=== PATIENT | female | born 1955 | race Caucasian/White ===

== ENCOUNTER 2017-07-01 10:55 | Day surgery (SDC) | payer BC ==
[~2017-07-01 10:55] MED LIST: Lactated Ringers 1,000 ML IV SCH; Sodium Chloride 0.9% 5 ML Syringe FLUSH PRN
[2017-07-01] MEDS ORDERED: Propofol 200 MG/20 ML SDV ONE ×2 (11:43→12:32)
[2017-07-01] MEDS ORDERED: Midazolam 1 MG/ML 2 ML SDV ONE (11:43)
[2017-07-01] MEDS ORDERED: Propofol 200 MG/20 ML SDV IV ONE (12:13)
[2017-07-01] MEDS ORDERED: Midazolam 1 MG/ML 2 ML SDV IV ONE (12:13)
--- NOTE | 2017-07-01 12:17 | PCM.PN ---
- General Info Date of Service: 07/01/17 - Review of Systems Systems Review Comment:: 61-year-old female here for colonoscopy. She has had 2 previous colonoscopies and she states that she has had colon polyps in the past. She is medically stable to proceed today with no recent significant change in her health status. I have discussed the proposed colonoscopy with the patient. Risks such as but not limited to bleeding and GI injury reviewed. She appears to understand and agrees to proceed. - Patient Data Vitals - Most Recent: Last Vital Signs Temp 98.5 F 07/01/17 11:17 Pulse 52 L 07/01/17 11:17 Resp 18 07/01/17 11:17 BP 121/67 07/01/17 11:17 Pulse Ox 99 07/01/17 11:17 Weight - Most Recent: 89.811 kg Med Orders - Current: Current Medications Lactated Ringer's (Ringers, Lactated) 1,000 mls @ 50 mls/hr IV ASDIRECTED DARLYN Last Admin: 07/01/17 11:25 Dose: 50 mls/hr Sodium Chloride (Syrex Flush) 5 ml FLUSH Q8HR PRN PRN Reason: Keep Vein Open Discontinued Medications Midazolam HCl (Versed 1 Mg/Ml) Confirm Administered Dose 4 mg .ROUTE .STK-MED ONE Stop: 07/01/17 11:44 Propofol (Diprivan 20 Ml) Confirm Administered Dose 200 mg .ROUTE .STK-MED ONE Stop: 07/01/17 11:44 - Problem List Review Problem List Initiated/Reviewed/Updated: Yes - My Orders Last 24 Hours: My Active Orders 06/30/17 14:18 Resuscitation Status Routine 07/01/17 10:30 Patient to Empty Bladder [RC] ASDIRECTED Peripheral IV Care [RC] . DIRECTED Verify Patient Consent Obtain [RC] ASDIRECTED Lactated Ringers [Ringers, Lactated] 1,000 ml IV ASDIRECTED Sodium Chloride 0.9% [Syrex Flush] 5 ml FLUSH Q8HR PRN Peripheral IV Insertion Adult [OM.PC] Routine 07/01/17 Breakfast Nothing Per Oral Diet [DIET] - Assessment Assessment:: History of colon polyps - Plan Plan:: Colonoscopy
[2017-07-01] MEDS ORDERED: Lactated Ringers 1,000 ML ONE (12:45)
--- NOTE | 2017-07-01 12:56 | PCM.OPNOTE ---
- General Post-Op/Procedure Note Date of Surgery/Procedure: 07/01/17 Operative Procedure(s): Colonoscopy with Polypectomy Findings: Small Splenic Flexure Polyp Moderate Sigmoid Diverticulosis Moderate to Large Hemorrhoids Pre Op Diagnosis: History of Colon Polyps Post-Op Diagnosis: Colon Polyp. Diverticulosis. Hemorrhoids Anesthesia Technique: MAC Primary Surgeon: Washington Ventura Pathology: Splenic Flexure Polyp Output, Urine Amount: 0 EBL in mLs: 0 Complications: None Condition: Good
[2017-07-01 14:22] VITALS: BP 118/82
--- NOTE | 2017-07-01 22:03 | OR ---
DATE OF SURGERY: 07/01/2017 SURGEON: Washington Ventura MD REFERRING PHYSICIAN: Sofía Hooper MD PREOPERATIVE DIAGNOSIS: History of colon polyps. POSTOPERATIVE DIAGNOSIS: Colon polyp, diverticulosis, and hemorrhoids. OPERATION PERFORMED: Colonoscopy with polypectomy. INDICATIONS FOR SURGERY: This 61-year-old female, who comes for a colonoscopy today. She does have a history of colon polyps in the past. FINDINGS: Single polyp was noted today at the splenic flexure. This was an irregularly shaped, 8 mm sessile polyp. The patient has a moderate degree of sigmoid diverticulosis which does not appear to be acutely inflamed or otherwise complicated. She also has moderate to large external hemorrhoids. PROCEDURE: The patient was taken to the operating room. She was given intravenous sedation and with her in the left lateral decubitus position, digital rectal exam was performed showing no rectal masses. The Olympus colonoscope was inserted into the rectum. Retroflexed examination of the rectal canal was performed. The scope was then carefully advanced under direct visualization throughout the entire length of the colon until cecum was reached. Cecal acquisition was confirmed by noting the normal internal cecal anatomy including the appendiceal orifice and ileocecal valve. After examining the cecum, the scope was slowly withdrawn sequentially re-examining the colonic segments. At the splenic flexure level, the above-described polyp was identified. This was removed with a cautery snare and retrieved into a polyp trap. Examination is continued and then completed. No sign of any complication was noted. After the scope was removed, the patient was taken from the operating room in satisfactory condition. ESTIMATED BLOOD LOSS: Zero. COMPLICATIONS: None. PROGNOSIS: Good. /[id number]/MODL
== END 2017-07-01 14:20 | disposition home or self-care (01) ==
LOC: KA.SDS 10:55
PROVIDERS: ATTEND Surgery
DX: Z12.11 Encounter for screening for malignant neoplasm of colon (principal); K63.5 Polyp of colon; K57.30 Diverticulosis of large intestine without perforation or abscess without bleeding; K64.4 Residual hemorrhoidal skin tags; I25.2 Old myocardial infarction; Z86.010 Personal history of colon polyps; Z91.040 Latex allergy status; Z91.018 Allergy to other foods; J30.81 Allergic rhinitis due to animal (cat) (dog) hair and dander; Z79.82 Long term (current) use of aspirin; Z79.899 Other long term (current) drug therapy; Z98.51 Tubal ligation status; Z87.891 Personal history of nicotine dependence
CPT/HCPCS: 45385; J2250; J2704; J7120

== ENCOUNTER 2020-07-05 12:33 | Emergency (ER) | payer BC ==
[2020-07-05] MEDS: Aspirin 81 MG Tab.Chew PO ONE (13:04)
[2020-07-05] MEDS: Ondansetron 4 MG/2 ML SDV IVPUSH ONE (13:04)
[2020-07-05] MEDS: Aspirin 81 MG Tab.Chew ONE (13:14)
[2020-07-05] MEDS: Sodium Chloride 0.9% 1,000 ML ONE (13:14)
[2020-07-05] MEDS: Sodium Chloride 0.9% 1,000 ML IV SCH (13:14)
--- NOTE | 2020-07-05 13:28 | EDM.PDOC ---
ED HPI GENERAL MEDICAL PROBLEM - General Stated Complaint: NAUSEA Time Seen by Provider: 07/05/20 13:01 Source of Information: Reports: Patient History Limitations: Reports: No Limitations - History of Present Illness INITIAL COMMENTS - FREE TEXT/NARRATIVE: Presents emergency room for chief complaint of severe upper middle back pain and nausea. Patient was working night shifts at [employer] and she developed upper middle back pain which was severe right between her shoulder blades. There is no radiation and she had associated symptoms of only nausea. The pain got worse when she was 10 out of 10 in which she left early from work. She sat in her vehicle hunched over on the steering well and the pain eventually subsided. She notes going to bed at 4:30 in the morning and slept until 830 this morning. She woke up and developed the same pain again. She also had this exact same pain the night before which only lasted for a brief period of time. It is not reproducible and movement does not change the pain. She notes that sharp constant throbbing pain. She took some ibuprofen which did not to help. She did call her family doctor this morning and had telemedicine visit at 11:00. She was referred to emergency room for further evaluation and management for this upper mid back pain concerning for ACS. She has history of ACS back in 2016 which had angiogram with no stent placement "due to arteries being too small where the blockage was occurred". She was placed on Plavix for a while which has been discontinued. Currently she has history of hypertension managed with Coreg, hyperlipidemia intolerant to statins therefore managed by niacin twice daily. Cigarette smoking history she is down to 2 cigarettes/day however she has history of 30-35 years half pack per day. In addition to note she has lost 40 pounds in last 6 months without really trying. She does note eating less due to working night shifts because she does not like eating where she works at. Upper Back Pain Score (Numeric/FACES): 10 - Related Data Allergies Allergy/AdvReac Type Severity Reaction Status Date / Time animal dander Allergy unknown Verified 07/01/17 11:08 kiwi Allergy Anaphylactic Verified 07/01/17 11:08 Shock Latex, Natural Rubber Allergy Hives Verified 07/01/17 11:08 Home Meds: Home Meds Calcium Carbonate/Vitamin D3 [Calcium 600 + Vit D 200] 1 tab PO BID 06/30/16 [History] Aspirin [Halfprin] 81 mg PO DAILY 06/30/17 [History] carvediloL [Coreg] 3.125 mg PO BID 06/30/17 [History] Niacin 1,000 mg PO BID 07/05/20 [History] Ondansetron [Zofran ODT] 4 mg PO Q6H PRN #10 tab.dis 07/05/20 [Rx] Past Medical History HEENT History: Reports: None Cardiovascular History: Reports: Angina Respiratory History: Reports: Bronchitis, Recurrent, Pneumonia, Recurrent Gastrointestinal History: Reports: Hemorrhoids Other Gastrointestinal History: esophageal spasm in 02/2016 Genitourinary History: Reports: None VALIDATION ANALYST History: Reports: Neurological History: Reports: None Endocrine/Metabolic History: Reports: None Dermatologic History: Reports: Other (See Below) Other Dermatologic History: Rash - Infectious Disease History Infectious Disease History: Reports: Chicken Pox, Measles, Mumps Social & Family History - Family History Family Medical History: No Pertinent Family History Cardiac: Reports: None, Other (See Below) Other Cardiac Family History: / Respiratory: Reports: None Neurological: Reports: None - Caffeine Use Caffeine Use: Reports: Tea ED ROS GENERAL - Review of Systems Review Of Systems: See Below Constitutional: Reports: No Symptoms. Denies: Fever, Weakness, Diaphoresis HEENT: Reports: No Symptoms Respiratory: Reports: No Symptoms. Denies: Shortness of Breath, Cough Cardiovascular: Reports: No Symptoms. Denies: Chest Pain, Dyspnea on Exertion, Edema, Syncope Endocrine: Reports: No Symptoms. Denies: Fatigue GI/Abdominal: Reports: Nausea. Denies: Abdominal Pain, Diarrhea, Vomiting Musculoskeletal: Reports: Back Pain. Denies: Neck Pain, Shoulder Pain Skin: Reports: No Symptoms. Denies: Rash Neurological: Reports: No Symptoms. Denies: Dizziness, Headache ED EXAM, GENERAL - Physical Exam Exam: See Below Exam Limited By: No Limitations General Appearance: Alert, WD/WN, No Apparent Distress Eye Exam: Bilateral Eye: EOMI Nose: Normal Inspection Throat/Mouth: Normal Inspection, Normal Oropharynx Head: Atraumatic, Normocephalic Neck: Normal Inspection, Supple, Non-Tender, Full Range of Motion Respiratory/Chest: No Respiratory Distress, Lungs Clear, Normal Breath Sounds, No Accessory Muscle Use, Chest Non-Tender Cardiovascular: Normal Peripheral Pulses, Regular Rate, Rhythm, No Edema, No Murmur, No Rub Peripheral Pulses: 2+: Radial (L), Radial (R), Posterior Tibial (L), Posterior Tibial (R), Dorsalis Pedis (L), Dorsalis Pedis (R) GI/Abdominal: Normal Bowel Sounds, Soft, Non-Tender, No Organomegaly, No Abnormal Bruit Back Exam: Normal Inspection, Full Range of Motion. No: Decreased Range of Motion, Muscle Spasm, Paraspinal Tenderness, Vertebral Tenderness Extremities: Normal Inspection, Normal Range of Motion Neurological: Alert, Oriented, Normal Gait Psychiatric: Normal Affect, Normal Mood Skin Exam: Warm, Dry, Intact. No: Diaphoretic #1 Interpretation EKG Date: 07/05/20 Time: 13:10 Rhythm: NSR P-Wave: Present QRS: Normal ST-T: Normal QT: Normal Comparison: No Change EKG Interpretation Comments: possible left atrial enlargement Course - Vital Signs Last Recorded V/S: Last Vital Signs Temp 97.3 F 07/05/20 13:17 Pulse 58 L 07/05/20 14:14 Resp 16 07/05/20 14:14 BP 119/74 07/05/20 14:14 Pulse Ox 98 07/05/20 14:14 - Orders/Labs/Meds Orders: Active Orders 24 hr Category Date Time Status EKG 12 Lead [EK] Stat Ther 07/05/20 12:53 Ordered Labs: Laboratory Tests 07/05/20 07/05/20 Range/Units 13:00 13:00 WBC 6.81 (5.00-10.00) 10^3/uL RBC 4.64 (3.80-5.50) 10^6/uL Hgb 13.6 (12.0-16.0) g/dL Hct 42.2 (37.0-47.0) % MCV 90.9 (82.0-92.0) fL MCH 29.3 (27.0-31.0) pg MCHC 32.2 (32.0-36.0) g/dL RDW 13.9 (11.5-14.5) % Plt Count 300 D (150-400) 10^3/uL MPV 10.7 H (7.4-10.4) fL Immature Gran % (Auto) 0.0 (0.0-5.0) % Neut % (Auto) 50.4 (50.0-70.0) % Lymph % (Auto) 32.7 (20.0-40.0) % Pitkin % (Auto) 11.9 H (2.0-8.0) % Eos % (Auto) 4.7 H (1.0-3.0) % Baso % (Auto) 0.3 (0.0-1.0) % Neut # (Auto) 3.43 (2.50-7.00) 10^3/uL Lymph # (Auto) 2.23 (1.00-4.00) 10^3/uL Pitkin # (Auto) 0.81 H (0.10-0.80) 10^3/uL Eos # (Auto) 0.32 H (0.10-0.30) 10^3/uL Baso # (Auto) 0.02 (0.00-0.10) 10^3/uL Immature Gran # (Auto) 0.00 (0.00-0.50) 10^3/uL Sodium 141 (136-145) mmol/L Potassium 4.2 (3.3-5.3) mmol/L Chloride 106 (98-115) mmol/L Carbon Dioxide 28.8 (21.0-32.0) mmol/L Anion Gap 10.4 (5-15) mmol/L BUN 21 (6-25) mg/dL Creatinine 0.92 (0.51-1.17) mg/dL Est Cr Clr Drug Dosing 54.05 mL/min Estimated GFR (MDRD) > 60 mL/min Glucose 91 (75 - 99) mg/dL Calcium 9.3 (8.7-10.3) mg/dL Total Bilirubin 0.5 (0.2-1.0) mg/dL AST 57 H (15-37) U/L ALT 51 (12-78) U/L Alkaline Phosphatase 83 (46-116) IU/L Troponin I < 0.04 (0.00-0.070) ng/mL Total Protein 6.2 L (6.4-8.2) g/dL Albumin 3.25 (3.00-4.80) g/dL Meds: Medications Discontinued Medications Generic Name Dose Route Start Last Admin Trade Name Freq PRN Reason Stop Dose Admin Aspirin Confirm 07/05/20 12:50 07/05/20 13:14 Aspirin Administered 07/05/20 12:51 Not Given Dose 324 mg .ROUTE .STK-MED ONE Aspirin 324 mg 07/05/20 12:56 07/05/20 13:04 Aspirin PO 07/05/20 12:57 324 mg ONETIME ONE Administration Sodium Chloride Confirm 07/05/20 12:51 07/05/20 13:14 Normal Saline Administered 07/05/20 12:52 Not Given Dose 1,000 mls @ as directed .ROUTE .STK-MED ONE Sodium Chloride 1,000 mls @ 250 mls/hr 07/05/20 13:15 07/05/20 13:14 Normal Saline IV 250 mls/hr ASDIRECTED DARLYN Administration Ondansetron HCl 4 mg 07/05/20 12:56 07/05/20 13:04 Zofran IVPUSH 07/05/20 12:57 4 mg ONETIME ONE Administration - Re-Assessments/Exams Free Text/Narrative Re-Assessment/Exam: 07/05/20 14:11 Patient's nausea is greatly improved after 1 dose of Zofran. She was also given 324 mg of aspirin p.o. she did have 1 episode of intermittent middle back pain which resolved within seconds. It was when I was pushed on her back and examined it. The pain is not reproducible does not change w/ position. I palpitated all throughout her whole back and was not able to reproduce the pain again. I did get her up after her lab work came back negative. She walked around the unit symptom-free. She twisted and bent over and did full range of motion exercise with her back and developed no pain. She has no associated symptoms. I suspect this to be musculoskeletal in nature however, I am concerned about her history and symptoms I did contact CARL Vizcaino at the [facility] in which she saw on telemedicine this morning. I gave him a full report and update plan of care. They will follow-up with her telemedicine visit tomorrow. His nurse will contact her to schedule an appointment. The PCP at the [facility] is aware of her weight loss over the past 6 months. Carl hamilton is high risk for developing ACS cardiac or pulmonary problems. I considered PE however patient has no signs symptoms of PE. No tachycardia no shortness of breath hemoptysis no signs of DVT or blood clotting disorders known, no pleuritic-like chest pain. Considered AAA, no abdominal bruit. No widened mediastinum on chest x-ray, ABIs were conducted. 1.13 which is normal. Strong equal radial pulses. She has no GI symptoms. Negative Tristan sign as well. Slight elevation in AST slightly, low protein however essentially labs are negative. She does have a negative troponin no need to repeat troponin at this time as her symptoms been going over 12 hours ago. She also had an episode 36 hours ago. I did discuss entirely return precautions discussed. Patient will return emergency room if your symptoms return or change or worrisome symptoms. Patient verbalized complete understanding and will have a low threshold on returning. 07/05/20 19:18 Departure - Departure Time of Disposition: 14:11 Disposition: Home, Self-Care 01 Condition: Good Clinical Impression: Upper back pain, Nausea Prescriptions: Ondansetron [Zofran ODT] 4 mg PO Q6H PRN #10 tab.dis PRN Reason: Nausea Instructions: Acute Back Pain, Adult, Nausea, Adult, [id number] Forms: ED Department Discharge Sepsis Event Note (ED) - Focused Exam Vital Signs: Vital Signs Temp Pulse Resp BP BP BP BP 07/05/20 14:14 58 L 16 07/05/20 14:00 156/68 H 135/72 153/79 H 125/74 07/05/20 13:17 97.3 F 65 20 BP Pulse Ox 07/05/20 14:14 119/74 98 07/05/20 14:00 07/05/20 13:17 147/86 H 98 - My Orders Last 24 Hours: My Active Orders 07/05/20 12:53 EKG 12 Lead [EK] Stat - Assessment/Plan Last 24 Hours: My Active Orders 07/05/20 12:53 EKG 12 Lead [EK] Stat
[2020-07-05 13:37] LABS: ANION GAP 10.4 mmol/L (5-15); CHLORIDE,CL 106 mmol/L (98-115); SODIUM,NA 141 mmol/L (136-145)
--- NOTE | 2020-07-05 13:43 | CR ---
[id number] RAD/RAD Chest PA And Lateral EXAM: FRONTAL AND LATERAL CHEST INDICATION: BACK PAIN THAT RADIATES TO SCAPULA COMPARISON: March 14, 2016. DISCUSSION: Mild linear scarring in the left lung base is stable. Borderline hyperinflation. No acute infiltrates. Normal heart size. No effusions. IMPRESSION: 1. No acute findings. Manoj Torres MD 07/05/20 [id number] Thank you for allowing us to participate in the care of your patient.
[2020-07-05 14:15] VITALS: PULSE 58
[2020-07-05 14:51] VITALS: BP 125/74
== END 2020-07-05 14:35 | disposition home or self-care (01) ==
LOC: KA.ED 12:33
DX: M54.6 Pain in thoracic spine (principal); R11.0 Nausea; Z91.018 Allergy to other foods; Z91.040 Latex allergy status; Z91.09 Other allergy status, other than to drugs and biological substances; Z79.82 Long term (current) use of aspirin; Z79.899 Other long term (current) drug therapy
CPT/HCPCS: 36415; 71046; 80053; 84484; 85025; 96374; 99284; 99284-25; A9270-GY; J2405; J7030

== ENCOUNTER 2024-02-14 15:55 | Emergency (ER) | payer BC ==
[2024-02-14] MEDS: Sodium Chloride 0.9% 10 ML Syringe FLUSH PRN (16:03)
[2024-02-14] MEDS: fentaNYL 100 MCG/2 ML SDV IVPUSH ONE (16:24)
[2024-02-14] MEDS: HYDROmorphone 1 MG/ML Syringe IVPUSH ONE (16:54)
[2024-02-14] MEDS: Ondansetron 4 MG/2 ML SDV IVPUSH ONE (17:00)
[2024-02-14 17:02] LABS: BASOPHILS ABSOLUTE AUTO 0.03 10^3/uL (0.00-0.10); BASOPHILS PERCENT AUTO 0.2 % (0.0-1.0); EOSINOPHILS ABSOLUTE AUTO 0.13 10^3/uL (0.10-0.30); EOSINOPHILS PERCENT AUTO 0.8 % (1.0-3.0); HEMATOCRIT 41.6 % (37.0-47.0); HEMOGLOBIN 13.8 g/dL (12.0-16.0); IMMATURE GRAN ABSOLUTE AUTO 0.02 10^3/uL (0.00-0.50); IMMATURE GRAN PERCENT AUTO 0.1 % (0.0-5.0); LYMPHOCYTES ABSOLUTE AUTO 1.31 10^3/uL (1.00-4.00); LYMPHOCYTES PERCENT AUTO 8.2 % (20.0-40.0); MEAN CORPUSCULAR HEMOGLOBIN 29.5 pg (27.0-31.0); MEAN CORPUSCULAR HGB CONC 33.2 g/dL (32.0-36.0); MEAN CORPUSCULAR VOLUME 88.9 fL (82.0-92.0); MEAN PLATELET VOLUME 10.4 fL (7.4-10.4); MONOCYTES ABSOLUTE AUTO 1.67 10^3/uL (0.10-0.80); MONOCYTES PERCENT AUTO 10.5 % (2.0-8.0); NEUTROPHILS ABSOLUTE AUTO 12.73 10^3/uL (2.50-7.00); NEUTROPHILS PERCENT AUTO 80.2 % (50.0-70.0); PLATELET COUNT,PLT 315 10^3/uL (150-400); RED BLOOD CELL COUNT 4.68 10^6/uL (3.80-5.50); RED CELL DISTRIBUTION WIDTH 14.2 % (11.5-14.5); WHITE BLOOD CELL COUNT,WBC 15.89 10^3/uL (5.00-10.00)
[2024-02-14 17:03] LABS: ALBUMIN 3.03 g/dL (3.40-5.00); ANION GAP 13.7 mmol/L (5-15); BILIRUBIN TOTAL 0.5 mg/dL (0.2-1.0); CALCIUM 9.2 mg/dL (8.7-10.3); CARBON DIOXIDE,CO2 26.3 mmol/L (21.0-32.0); CREATININE 0.9 mg/dL (0.51-1.17); EST CRCL DRUG DOSING (CG) 50.18 mL/min; PROTEIN TOTAL,TP 6.7 g/dL (6.4-8.2)
[2024-02-14 17:11] LABS: C-REACTIVE PROTEIN 3.9 mg/dL (0.00-0.50)
[2024-02-14] MEDS: Sodium Chloride 0.9% 50 ML IV SCH (17:50)
[2024-02-14] MEDS: Iopamidol 755 Mg/ML 100 ML Bottle IV ONE (17:50)
[2024-02-14 18:50] LABS: APPEARANCE,URINE CLEAR (CLEAR); BILIRUBIN,URINE NEGATIVE (NEGATIVE); COLOR,URINE YELLOW (YELLOW); GLUCOSE,URINE NEGATIVE (NEGATIVE); KETONES,URINE TRACE mg/dL (NEGATIVE); LEUKOCYTE ESTERASE,URINE NEGATIVE (NEGATIVE); NITRITE,URINE NEGATIVE (NEGATIVE); PROTEIN,URINE TRACE mg/dL (NEGATIVE); UROBILINOGEN,URINE 0.2 E.U./dL (0.2-1.0)
[2024-02-14 18:58] LABS: OCCULT BLOOD,URINE SMALL (NEGATIVE)
[2024-02-14 18:59] LABS: BACTERIA,URINE RARE /HPF (NONE TO FEW); EPITHELIAL CELLS,URINE FEW /LPF; RBC,URINE 0-5 /HPF (0-5); WBC,URINE 0-5 /HPF (0-5)
[2024-02-14] MEDS: Amoxicillin/Clavulanate K 875-125 MG Tab PO ONE (19:42)
[2024-02-14] MEDS: Ketorolac 30 MG/ML SDV IVPUSH ONE (19:51)
[2024-02-14 23:33] VITALS: BP 135/78; PULSE 83
== END 2024-02-14 20:28 | disposition home or self-care (01) ==
LOC: KA.ED 15:55
DX: K57.32 Diverticulitis of large intestine without perforation or abscess without bleeding (principal); F17.210 Nicotine dependence, cigarettes, uncomplicated; Z79.82 Long term (current) use of aspirin; Z79.899 Other long term (current) drug therapy; Z91.040 Latex allergy status; Z91.018 Allergy to other foods; Z91.048 Other nonmedicinal substance allergy status
CPT/HCPCS: 74177; 80053; 81001; 82150; 83605; 83690; 85025; 86140; 96374; 96375; 99284-25; A9270-GY; J1170; J1885; J2405; J3010; J3490; Q3014; Q9967